=== PATIENT | male | born 1945 | race Caucasian/White ===

== ENCOUNTER 2019-02-05 11:49 | Emergency (ER) | payer OTHER ==
[2019-02-05 13:35] LABS: ADD MAN DIFF? NO
[2019-02-05 13:40] LABS: WHITE BLOOD COUNT 15.8 10^3/ul (4.8-10.8)
[2019-02-05 13:40] LABS: ABNORMAL IP MESSAGE 1; BASOPHIL # 0.1 10^3/ul (0.0-0.1); BASOPHILS % 0.3 % (0.0-2.0); HEMATOCRIT 33.8 % (42.0-52.0); HEMOGLOBIN 10.9 g/dl (14.0-18.0); LYMPHOCYTES # 0.6 10^3/ul (0.8-2.9); LYMPHOCYTES % 3.7 % (15.0-51.0); MEAN CORPUSCULAR HEMOGLOBIN 27.9 pg (29.0-33.0); MEAN CORPUSCULAR HGB CONC 32.2 g/dl (32.0-37.0); MEAN CORPUSCULAR VOLUME 86.7 fl (82.0-101.0); MEAN PLATELET VOLUME 8.4 fl (7.4-10.4); MONOCYTE # 0.7 10^3/ul (0.3-0.9); MONOCYTES % 4.1 % (0.0-11.0); NEUTROPHIL # 14.4 10^3/ul (1.6-7.5); NEUTROPHILS % 91.3 % (39.0-77.0); PLATELET COUNT 309 10^3/UL (140-415); POSITIVE DIFF @See below; RED CELL DISTRIBUTION WIDTH 13.4 % (11.5-14.5)
[2019-02-05 14:06] LABS: INR 1.05; PROTIME 13.8 Sec (11.9-14.9); PT RATIO 1.1
[2019-02-05 14:07] LABS: PARTIAL THROMBOPLASTIN TIME 35.4 Sec (23.0-35.0)
[2019-02-05 14:42] LABS: ALANINE AMINOTRANSFERASE 19 IU/L (13-69); ALBUMIN 3.9 g/dl (3.3-4.9); ALBUMIN/GLOBULIN RATIO 1.08; ALKALINE PHOSPHATASE 96 IU/L (42-121); ANION GAP 10 (5-13); ASPARTATE AMINO TRANSFERASE 21 IU/L (15-46); BILIRUBIN,INDIRECT 0.5 mg/dl (0-1.1); BILIRUBIN,TOTAL 0.5 mg/dl (0.2-1.3); BLOOD UREA NITROGEN 16 mg/dl (7-20); CALCIUM 9.3 mg/dl (8.4-10.2); CARBON DIOXIDE 29 mmol/L (21-31); CHLORIDE 100 mmol/L (97-110); CREATININE 0.59 mg/dl (0.61-1.24); ETHANOL < 10.0 mg/dl (0-0); GLUCOSE 145 mg/dl (70-220); LIPASE 48 U/L (23-300); POTASSIUM 3.9 mmol/L (3.5-5.1); SODIUM 139 mmol/L (135-144); TOTAL PROTEIN 7.5 g/dl (6.1-8.1)
[2019-02-05 14:53] LABS: TROPONIN-I 0.014 ng/ml (0.000-0.120)
[2019-02-05 14:58] LABS: FREE T3 3.83 pg/ml (2.77-5.27)
[2019-02-05 14:59] LABS: FREE T4 (FREE THYROXINE) 1.68 ng/dl (0.78-2.44)
[2019-02-05] MEDS: SOD CHLORIDE 0.9% 1,000 ML IV (15:02)
[2019-02-05] MEDS: LACTATED RINGER'S 1,000 ML IV (15:03)
[2019-02-05 15:12] LABS: THYROID STIMULATING HORMONE 0.454 MIU/L (0.465-4.680)
[2019-02-05] MEDS: KETOROLAC 15 MG INJ IV (15:19)
[2019-02-05] MEDS: IOHEXOL 300MG/ML 150 ML BTL (16:52)
[2019-02-05] MEDS: SOD CHLORIDE 0.9% 100 ML (16:52)
[2019-02-05] MEDS ORDERED: IOHEXOL 100 ML (18:30)
[2019-02-05] MEDS ORDERED: SOD CHLORIDE 0.9% 100 ML (18:30)
[2019-02-05] MEDS: ENALAPRILAT 1.25 MG INJ IV (18:48)
[2019-02-05] MEDS: LABETALOL HCL 20MG INJ IV (23:02)
[2019-02-05] MEDS: hydrALAzine 20 MG INJ IV (23:38)
[2019-02-06] MEDS: ESMOLOL 250 ML IV (00:11)
== END 2019-02-06 01:22 | disposition short-term general hospital (02) ==
LOC: E/R 02-06 01:22
DX: I72.0 Aneurysm of carotid artery (principal); J98.8 Other specified respiratory disorders; E86.0 Dehydration; K02.9 Dental caries, unspecified; I10 Essential (primary) hypertension; R10.9 Unspecified abdominal pain
CPT/HCPCS: 70450; 70491; 71045; 71275; 80053; 80307; 82533; 83690; 84439; 84443; 84481; 84484; 85025; 85610; 85730; 86850; 86900; 86901; 93005; 96374; 96375; 99285-25

== ENCOUNTER 2019-03-13 09:26 | Emergency (ER) | payer OTHER ==
[2019-03-13 11:03] LABS: ADD UMIC YES; UR ASCORBIC ACID NEGATIVE (NEGATIVE); UR BACTERIA FEW /HPF (NONE SEEN); UR BILIRUBIN (Dip) NEGATIVE (NEGATIVE); UR BLOOD (Dip) 3+ mg/dL (NEGATIVE); UR CLARITY TURBID (CLEAR); UR COLOR YELLOW (YELLOW); UR GLUCOSE (Dip) NEGATIVE (NEGATIVE); UR KETONES (Dip) NEGATIVE (NEGATIVE); UR LEUKOCYTE ESTERASE (Dip) 2+ Leu/ul (NEGATIVE); UR NITRITE (Dip) NEGATIVE (NEGATIVE); UR RBC > 182 /HPF (0-5); UR SPECIFIC GRAVITY (Dip) 1.013 (1.003-1.030); UR TOTAL PROTEIN (Dip) 2+ mg/dl (NEGATIVE); UR UROBILINOGEN (Dip) NEGATIVE (NEGATIVE); UR WBC > 182 /HPF (0-5)
== END 2019-03-13 13:20 | disposition home or self-care (01) ==
LOC: E/R 09:26
DX: N30.01 Acute cystitis with hematuria (principal); R40.2252 Coma scale, best verbal response, oriented, at arrival to emergency department; I10 Essential (primary) hypertension; Z86.73 Personal history of transient ischemic attack (TIA), and cerebral infarction without residual deficits; Z95.1 Presence of aortocoronary bypass graft
CPT/HCPCS: 51702; 81001; 87086; 99283-25

== ENCOUNTER 2019-03-19 13:53 | Inpatient (IN) | payer OTHER ==
[2019-03-19] MEDS ORDERED: ONDANSETRON 4 MG INJ IV ×2 (14:30→18:00)
[2019-03-19] MEDS ORDERED: ACETAMINOPHEN 325 MG TAB PO ×2 (14:30→18:00)
[2019-03-19 15:07] LABS: ADD MAN DIFF? NO
[2019-03-19 15:13] LABS: WHITE BLOOD COUNT 15.5 10^3/ul (4.8-10.8)
[2019-03-19 15:13] LABS: ABNORMAL IP MESSAGE 1; BASOPHILS % 0.3 % (0.0-2.0); HEMATOCRIT 30.8 % (42.0-52.0); HEMOGLOBIN 10.2 g/dl (14.0-18.0); LYMPHOCYTES # 0.5 10^3/ul (0.8-2.9); LYMPHOCYTES % 3.3 % (15.0-51.0); MEAN CORPUSCULAR HEMOGLOBIN 29.4 pg (29.0-33.0); MEAN CORPUSCULAR HGB CONC 33.1 g/dl (32.0-37.0); MEAN CORPUSCULAR VOLUME 88.8 fl (82.0-101.0); MEAN PLATELET VOLUME 8.9 fl (7.4-10.4); MONOCYTE # 0.9 10^3/ul (0.3-0.9); MONOCYTES % 5.5 % (0.0-11.0); NEUTROPHILS % 90.3 % (39.0-77.0); PLATELET COUNT 293 10^3/UL (140-415); POSITIVE DIFF @See below; RED BLOOD COUNT 3.47 10^6/ul (4.70-6.10); RED CELL DISTRIBUTION WIDTH 15.2 % (11.5-14.5)
[2019-03-19] MEDS: SODIUM CHLORIDE 0.9% 1L BAG IV* (15:20)
[2019-03-19] MEDS: CEFTRIAXONE 1 GM/50 ML (PMX) 50 ML IVPB (15:21)
[2019-03-19 15:31] LABS: INR 0.92; PROTIME 12.5 Sec (11.9-14.9)
[2019-03-19 15:32] LABS: ALANINE AMINOTRANSFERASE 20 IU/L (13-69); ALBUMIN/GLOBULIN RATIO 1.37; ALKALINE PHOSPHATASE 126 IU/L (42-121); ANION GAP 8 (5-13); ASPARTATE AMINO TRANSFERASE 20 IU/L (15-46); BILIRUBIN,INDIRECT 0.4 mg/dl (0-1.1); BILIRUBIN,TOTAL 0.4 mg/dl (0.2-1.3); BLOOD UREA NITROGEN 15 mg/dl (7-20); CALCIUM 9.2 mg/dl (8.4-10.2); CARBON DIOXIDE 27 mmol/L (21-31); CHLORIDE 97 mmol/L (97-110); GLUCOSE 239 mg/dl (70-220); PARTIAL THROMBOPLASTIN TIME 32.7 Sec (23.0-35.0); POTASSIUM 4.6 mmol/L (3.5-5.1); SODIUM 132 mmol/L (135-144); TOTAL PROTEIN 6.9 g/dl (6.1-8.1)
[2019-03-19 15:43] LABS: TROPONIN-I < 0.012 ng/ml (0.000-0.120)
[2019-03-19] MEDS ORDERED: BISACODYL (EC) 5 MG TAB PO (18:00)
[2019-03-19 19:37] LABS: LACTIC ACID 1.1 mmol/L (0.5-2.0)
[2019-03-19 19:50] LABS: ADD UMIC YES; UR ASCORBIC ACID NEGATIVE (NEGATIVE); UR BILIRUBIN (Dip) NEGATIVE (NEGATIVE); UR BLOOD (Dip) 3+ mg/dL (NEGATIVE); UR CLARITY CLEAR (CLEAR); UR COLOR RED (YELLOW); UR GLUCOSE (Dip) NEGATIVE (NEGATIVE); UR KETONES (Dip) NEGATIVE (NEGATIVE); UR LEUKOCYTE ESTERASE (Dip) NEGATIVE Leu/ul (NEGATIVE); UR NITRITE (Dip) NEGATIVE (NEGATIVE); UR RBC > 182 /HPF (0-5); UR SPECIFIC GRAVITY (Dip) 1.005 (1.003-1.030); UR TOTAL PROTEIN (Dip) NEGATIVE (NEGATIVE); UR UROBILINOGEN (Dip) NEGATIVE (NEGATIVE); UR WBC 1 /HPF (0-5)
[2019-03-19] MEDS: MELATONIN 5 MG TABLET PO (20:47)
[2019-03-19] MEDS: AMIODARONE 200 MG TAB PO (20:47)
[2019-03-19] MEDS ORDERED: GLUCOSE GEL 15 GRAM TUBE PO ×2 (23:00)
[2019-03-19] MEDS ORDERED: GLUCAGON 1 MG INJ IM (23:00)
[2019-03-19] MEDS ORDERED: DEXTROSE 50% 50 ML SYRINGE IV ×2 (23:00)
[2019-03-19] MEDS ORDERED: GLUCOSE GEL 15 GRAM TUBE BUCCAL (23:00)
[2019-03-20] MEDS: ACCU-CHEK XX (02:00)
[2019-03-20 05:09] LABS: ADD MAN DIFF? NO
[2019-03-20 05:12] LABS: BASOPHILS % 0.5 % (0.0-2.0); EOSINOPHILS # 0.1 10^3/ul (0.0-0.5); EOSINOPHILS % 0.6 % (0.0-7.0); HEMATOCRIT 28.1 % (42.0-52.0); HEMOGLOBIN 9.4 g/dl (14.0-18.0); LYMPHOCYTES # 0.7 10^3/ul (0.8-2.9); LYMPHOCYTES % 8.6 % (15.0-51.0); MEAN CORPUSCULAR HEMOGLOBIN 29.8 pg (29.0-33.0); MEAN CORPUSCULAR HGB CONC 33.5 g/dl (32.0-37.0); MEAN CORPUSCULAR VOLUME 89.2 fl (82.0-101.0); MEAN PLATELET VOLUME 8.8 fl (7.4-10.4); MONOCYTE # 0.6 10^3/ul (0.3-0.9); MONOCYTES % 7.2 % (0.0-11.0); NEUTROPHIL # 6.6 10^3/ul (1.6-7.5); NEUTROPHILS % 82.5 % (39.0-77.0); PLATELET COUNT 253 10^3/UL (140-415); RED BLOOD COUNT 3.15 10^6/ul (4.70-6.10)
[2019-03-20 05:58] LABS: ANION GAP 6 (5-13); BLOOD UREA NITROGEN 7 mg/dl (7-20); CALCIUM 8.9 mg/dl (8.4-10.2); CARBON DIOXIDE 27 mmol/L (21-31); CHLORIDE 101 mmol/L (97-110); CREATININE 0.54 mg/dl (0.61-1.24); GLUCOSE 109 mg/dl (70-220); POTASSIUM 3.9 mmol/L (3.5-5.1); SODIUM 134 mmol/L (135-144)
[2019-03-20] MEDS: PANTOPRAZOLE (EC) 40 MG TAB PO (06:14)
[2019-03-20] MEDS: INSULIN ASPART [NOVOLOG] 3 ML PEN SC ×4 (07:50→21:00)
[2019-03-20] MEDS: TAMSULOSIN (SR) 0.4 MG CAP PO (08:38)
[2019-03-20] MEDS: AMLODIPINE 10 MG TAB PO (08:38)
[2019-03-20] MEDS: LISINOPRIL 20 MG TAB PO (08:39)
[2019-03-20] MEDS: AMIODARONE 200 MG TAB PO ×2 (08:39→21:16)
[2019-03-20] MEDS: CEFTRIAXONE 1 GM/50 ML (PMX) 50 ML IVPB (16:20)
[2019-03-20] MEDS: MELATONIN 5 MG TABLET PO (21:16)
[2019-03-21] MEDS: ACCU-CHEK XX (02:00)
[2019-03-21 04:58] LABS: ADD MAN DIFF? NO
[2019-03-21 05:03] LABS: WHITE BLOOD COUNT 6.6 10^3/ul (4.8-10.8)
[2019-03-21 05:03] LABS: BASOPHILS % 0.6 % (0.0-2.0); EOSINOPHILS # 0.1 10^3/ul (0.0-0.5); EOSINOPHILS % 0.8 % (0.0-7.0); HEMATOCRIT 26.7 % (42.0-52.0); LYMPHOCYTES % 14.4 % (15.0-51.0); MEAN CORPUSCULAR HEMOGLOBIN 30.1 pg (29.0-33.0); MEAN CORPUSCULAR HGB CONC 33.7 g/dl (32.0-37.0); MEAN CORPUSCULAR VOLUME 89.3 fl (82.0-101.0); MEAN PLATELET VOLUME 8.4 fl (7.4-10.4); MONOCYTE # 0.5 10^3/ul (0.3-0.9); MONOCYTES % 7.6 % (0.0-11.0); NEUTROPHILS % 76.3 % (39.0-77.0); PLATELET COUNT 243 10^3/UL (140-415); RED BLOOD COUNT 2.99 10^6/ul (4.70-6.10); RED CELL DISTRIBUTION WIDTH 14.9 % (11.5-14.5)
[2019-03-21 05:26] LABS: ANION GAP 6 (5-13); BLOOD UREA NITROGEN 13 mg/dl (7-20); CALCIUM 8.7 mg/dl (8.4-10.2); CARBON DIOXIDE 27 mmol/L (21-31); CHLORIDE 100 mmol/L (97-110); CREATININE 0.77 mg/dl (0.61-1.24); GLUCOSE 99 mg/dl (70-220); POTASSIUM 4.2 mmol/L (3.5-5.1); SODIUM 133 mmol/L (135-144)
[2019-03-21] MEDS: PANTOPRAZOLE (EC) 40 MG TAB PO (06:20)
[2019-03-21] MEDS: INSULIN ASPART [NOVOLOG] 3 ML PEN SC ×4 (07:50→20:59)
[2019-03-21] MEDS: TAMSULOSIN (SR) 0.4 MG CAP PO (08:15)
[2019-03-21] MEDS: AMLODIPINE 10 MG TAB PO (08:15)
[2019-03-21] MEDS: AMIODARONE 200 MG TAB PO ×2 (08:17→20:53)
[2019-03-21] MEDS: LISINOPRIL 20 MG TAB PO (08:18)
[2019-03-21] MEDS: CEFTRIAXONE 1 GM/50 ML (PMX) 50 ML IVPB (15:02)
[2019-03-21] MEDS: MELATONIN 5 MG TABLET PO (20:50)
[2019-03-22] MEDS: ACCU-CHEK XX (02:00)
[2019-03-22] MEDS: PANTOPRAZOLE (EC) 40 MG TAB PO (06:58)
[2019-03-22] MEDS: INSULIN ASPART [NOVOLOG] 3 ML PEN SC ×4 (07:50→21:00)
[2019-03-22] MEDS: AMLODIPINE 10 MG TAB PO (10:44)
[2019-03-22] MEDS: LISINOPRIL 20 MG TAB PO (10:45)
[2019-03-22] MEDS: TAMSULOSIN (SR) 0.4 MG CAP PO (10:45)
[2019-03-22] MEDS: AMIODARONE 200 MG TAB PO ×2 (10:46→21:07)
[2019-03-22] MEDS: CEFTRIAXONE 1 GM/50 ML (PMX) 50 ML IVPB (15:40)
[2019-03-22] MEDS: SOD CHLORIDE 0.45% 1,000 ML IV (15:40)
[2019-03-22] MEDS: MELATONIN 5 MG TABLET PO (21:07)
[2019-03-23] MEDS: ACCU-CHEK XX (02:00)
[2019-03-23] MEDS: PANTOPRAZOLE (EC) 40 MG TAB PO (05:16)
[2019-03-23] MEDS: INSULIN ASPART [NOVOLOG] 3 ML PEN SC ×4 (09:20→21:00)
[2019-03-23] MEDS: LISINOPRIL 20 MG TAB PO (09:21)
[2019-03-23] MEDS: TAMSULOSIN (SR) 0.4 MG CAP PO (09:21)
[2019-03-23] MEDS: AMIODARONE 200 MG TAB PO ×2 (09:21→21:23)
[2019-03-23] MEDS: AMLODIPINE 10 MG TAB PO (09:21)
[2019-03-23] MEDS: SOD CHLORIDE 0.45% 1,000 ML IV (12:41)
[2019-03-23] MEDS: CEFTRIAXONE 1 GM/50 ML (PMX) 50 ML IVPB (14:35)
[2019-03-23] MEDS: MELATONIN 5 MG TABLET PO (21:21)
[2019-03-24] MEDS: ACCU-CHEK XX (02:00)
[2019-03-24] MEDS: PANTOPRAZOLE (EC) 40 MG TAB PO (05:15)
[2019-03-24 06:01] LABS: ADD MAN DIFF? NO
[2019-03-24 06:09] LABS: WHITE BLOOD COUNT 7.7 10^3/ul (4.8-10.8)
[2019-03-24 06:09] LABS: BASOPHILS % 0.5 % (0.0-2.0); EOSINOPHILS # 0.1 10^3/ul (0.0-0.5); EOSINOPHILS % 1.7 % (0.0-7.0); HEMATOCRIT 28.4 % (42.0-52.0); HEMOGLOBIN 9.4 g/dl (14.0-18.0); LYMPHOCYTES # 0.9 10^3/ul (0.8-2.9); LYMPHOCYTES % 11.7 % (15.0-51.0); MEAN CORPUSCULAR HEMOGLOBIN 29.3 pg (29.0-33.0); MEAN CORPUSCULAR HGB CONC 33.1 g/dl (32.0-37.0); MEAN CORPUSCULAR VOLUME 88.5 fl (82.0-101.0); MEAN PLATELET VOLUME 8.8 fl (7.4-10.4); MONOCYTE # 0.5 10^3/ul (0.3-0.9); MONOCYTES % 6.1 % (0.0-11.0); NEUTROPHIL # 6.1 10^3/ul (1.6-7.5); NEUTROPHILS % 79.6 % (39.0-77.0); PLATELET COUNT 276 10^3/UL (140-415); RED BLOOD COUNT 3.21 10^6/ul (4.70-6.10); RED CELL DISTRIBUTION WIDTH 14.6 % (11.5-14.5)
[2019-03-24 06:44] LABS: ANION GAP 6 (5-13); BLOOD UREA NITROGEN 14 mg/dl (7-20); CALCIUM 8.5 mg/dl (8.4-10.2); CARBON DIOXIDE 27 mmol/L (21-31); CHLORIDE 100 mmol/L (97-110); CREATININE 0.62 mg/dl (0.61-1.24); GLUCOSE 79 mg/dl (70-220); POTASSIUM 4.1 mmol/L (3.5-5.1); SODIUM 133 mmol/L (135-144)
[2019-03-24] MEDS: INSULIN ASPART [NOVOLOG] 3 ML PEN SC ×4 (09:00→21:13)
[2019-03-24] MEDS: TAMSULOSIN (SR) 0.4 MG CAP PO (09:37)
[2019-03-24] MEDS: LISINOPRIL 20 MG TAB PO (09:38)
[2019-03-24] MEDS: AMIODARONE 200 MG TAB PO ×2 (09:38→21:23)
[2019-03-24] MEDS: AMLODIPINE 10 MG TAB PO (09:38)
[2019-03-24] MEDS: SOD CHLORIDE 0.45% 1,000 ML IV (09:56)
[2019-03-24] MEDS: CEFTRIAXONE 1 GM/50 ML (PMX) 50 ML IVPB (15:43)
[2019-03-24] MEDS: DOCUSATE SODIUM 100 MG CAP PO (17:49)
[2019-03-24] MEDS: MELATONIN 5 MG TABLET PO (21:14)
[2019-03-25] MEDS: ACCU-CHEK XX (02:00)
[2019-03-25] MEDS: SOD CHLORIDE 0.45% 1,000 ML IV (05:49)
[2019-03-25] MEDS: PANTOPRAZOLE (EC) 40 MG TAB PO (05:49)
[2019-03-25 05:54] LABS: ANION GAP 4 (5-13); BLOOD UREA NITROGEN 13 mg/dl (7-20); CALCIUM 8.5 mg/dl (8.4-10.2); CARBON DIOXIDE 27 mmol/L (21-31); CHLORIDE 100 mmol/L (97-110); CREATININE 0.66 mg/dl (0.61-1.24); GLUCOSE 90 mg/dl (70-220); SODIUM 131 mmol/L (135-144)
[2019-03-25] MEDS: INSULIN ASPART [NOVOLOG] 3 ML PEN SC ×4 (08:45→21:00)
[2019-03-25] MEDS: AMLODIPINE 10 MG TAB PO (08:57)
[2019-03-25] MEDS: TAMSULOSIN (SR) 0.4 MG CAP PO (08:57)
[2019-03-25] MEDS: LISINOPRIL 20 MG TAB PO (08:58)
[2019-03-25] MEDS: AMIODARONE 200 MG TAB PO ×2 (08:58→21:55)
[2019-03-25] MEDS: CEFTRIAXONE 1 GM/50 ML (PMX) 50 ML IVPB (15:27)
[2019-03-25] MEDS: POLYETHYLENE GLYCOL 17 GM PACKET PO (15:30)
[2019-03-25] MEDS: DOCUSATE SODIUM 100 MG CAP PO (17:49)
[2019-03-25] MEDS: MELATONIN 5 MG TABLET PO (21:53)
[2019-03-26] MEDS: ACCU-CHEK XX (02:00)
[2019-03-26] MEDS: DOCUSATE SODIUM 100 MG CAP PO (05:25)
[2019-03-26] MEDS: PANTOPRAZOLE (EC) 40 MG TAB PO (05:51)
[2019-03-26 06:12] LABS: ADD MAN DIFF? NO
[2019-03-26 06:25] LABS: WHITE BLOOD COUNT 9.1 10^3/ul (4.8-10.8)
[2019-03-26 06:25] LABS: ABNORMAL IP MESSAGE 1; BASOPHIL # 0.1 10^3/ul (0.0-0.1); BASOPHILS % 0.5 % (0.0-2.0); EOSINOPHILS % 0.3 % (0.0-7.0); HEMATOCRIT 26.3 % (42.0-52.0); HEMOGLOBIN 8.8 g/dl (14.0-18.0); LYMPHOCYTES # 0.5 10^3/ul (0.8-2.9); LYMPHOCYTES % 5.9 % (15.0-51.0); MEAN CORPUSCULAR HEMOGLOBIN 29.4 pg (29.0-33.0); MEAN CORPUSCULAR HGB CONC 33.5 g/dl (32.0-37.0); MEAN PLATELET VOLUME 8.7 fl (7.4-10.4); MONOCYTE # 0.4 10^3/ul (0.3-0.9); MONOCYTES % 4.8 % (0.0-11.0); NEUTROPHILS % 88.1 % (39.0-77.0); PLATELET COUNT 253 10^3/UL (140-415); POSITIVE DIFF @See below; RED BLOOD COUNT 2.99 10^6/ul (4.70-6.10); RED CELL DISTRIBUTION WIDTH 14.6 % (11.5-14.5)
[2019-03-26 06:46] LABS: ANION GAP 5 (5-13); BLOOD UREA NITROGEN 12 mg/dl (7-20); CALCIUM 8.3 mg/dl (8.4-10.2); CARBON DIOXIDE 27 mmol/L (21-31); CHLORIDE 98 mmol/L (97-110); CREATININE 0.68 mg/dl (0.61-1.24); GLUCOSE 152 mg/dl (70-220); POTASSIUM 3.8 mmol/L (3.5-5.1); SODIUM 130 mmol/L (135-144)
[2019-03-26] MEDS: INSULIN ASPART [NOVOLOG] 3 ML PEN SC ×2 (07:50→12:29)
[2019-03-26] MEDS: QUETIAPINE 25 MG TAB PO (08:30)
[2019-03-26] MEDS: AMLODIPINE 10 MG TAB PO (08:31)
[2019-03-26] MEDS: AMIODARONE 200 MG TAB PO (08:31)
[2019-03-26] MEDS: TAMSULOSIN (SR) 0.4 MG CAP PO (08:32)
[2019-03-26] MEDS: POLYETHYLENE GLYCOL 17 GM PACKET PO (08:32)
[2019-03-26] MEDS: LISINOPRIL 20 MG TAB PO (08:32)
[2019-03-26] MEDS: CEFTRIAXONE 1 GM/50 ML (PMX) 50 ML IVPB (12:26)
== END 2019-03-26 14:36 | DRG 872 ==
LOC: MS1 03-24 09:01 → E/R 13:53 → MS1 14:17
DX: A41.9 Sepsis, unspecified organism (principal); R64 Cachexia; N39.0 Urinary tract infection, site not specified; E11.8 Type 2 diabetes mellitus with unspecified complications; I48.91 Unspecified atrial fibrillation; D64.9 Anemia, unspecified; I10 Essential (primary) hypertension; I67.9 Cerebrovascular disease, unspecified; Z68.23 Body mass index [BMI] 23.0-23.9, adult; K59.00 Constipation, unspecified; N40.1 Benign prostatic hyperplasia with lower urinary tract symptoms; R33.8 Other retention of urine; A53.0 Latent syphilis, unspecified as early or late; R31.0 Gross hematuria; G93.89 Other specified disorders of brain
CPT/HCPCS: 36415; 80048; 80053; 81001; 82962; 83605; 84484; 85025; 85610; 85730; 87040-91; 87086; 93005; 99285-25

== ENCOUNTER 2019-03-27 17:17 | Inpatient (IN) | payer OTHER ==
[2019-03-27] MEDS: INSULIN ASPART [NOVOLOG] 3 ML PEN SC
[2019-03-27] MEDS: TAMSULOSIN (SR) 0.4 MG CAP PO
[2019-03-27] MEDS: D5W-0.45 NACL + KCL 20 MEQ 1,000 ML IV
[~2019-03-27 17:17] MED LIST: ETOMIDATE 20 MG INJ; SUCCINYLCHOLINE CHLORIDE 100 MG/5 ML SYG IV
[2019-03-27] MEDS: ETOMIDATE 20 MG INJ IV (17:45)
[2019-03-27] MEDS: SUCCINYLCHOLINE CHLORIDE 100 MG/5 ML SYG IV (17:45)
[2019-03-27] MEDS: ACETAMINOPHEN 650 MG SUPP PR (17:52)
[2019-03-27] MEDS: CEFEPIME 2GM/50 ML (PMX) 50 ML IVPB (17:53)
[2019-03-27] MEDS: PROPOFOL 100 ML IV (17:53)
[2019-03-27 17:56] LABS: ADD UMIC YES; UR ASCORBIC ACID NEGATIVE (NEGATIVE); UR BILIRUBIN (Dip) NEGATIVE (NEGATIVE); UR BLOOD (Dip) 1+ mg/dL (NEGATIVE); UR CLARITY CLEAR (CLEAR); UR COLOR YELLOW (YELLOW); UR GLUCOSE (Dip) NEGATIVE (NEGATIVE); UR KETONES (Dip) NEGATIVE (NEGATIVE); UR LEUKOCYTE ESTERASE (Dip) NEGATIVE Leu/ul (NEGATIVE); UR NITRITE (Dip) NEGATIVE (NEGATIVE); UR RBC 1 /HPF (0-5); UR SPECIFIC GRAVITY (Dip) 1.006 (1.003-1.030); UR TOTAL PROTEIN (Dip) NEGATIVE (NEGATIVE); UR UROBILINOGEN (Dip) NEGATIVE (NEGATIVE); UR WBC 2 /HPF (0-5)
[2019-03-27 18:11] LABS: INR 1.01; PROTIME 13.4 Sec (11.9-14.9)
[2019-03-27 18:12] LABS: PARTIAL THROMBOPLASTIN TIME 28.1 Sec (23.0-35.0)
[2019-03-27 18:13] LABS: AADO2 Arterial 443.1 mmHg (7.0-24.0); Allen Test ACCEPTAB; Arterial Base Excess -3.1 mmol/L (-3.0-3); Arterial Blood Gas Oxygen Sat 98.9 mmHG (95.0-100.0); Arterial COHb 0.3 % (0.0-3.0); Arterial Fraction of Oxyhgb 98.2 % (93.0-99.0); Arterial HCO3 22.4 mmol/L (22.0-26.0); Arterial MetHb 0.4 % (0.0-1.5); Arterial pCO2 41.7 mmhg (35-45); MODE VENT - AC; Site Left Radial
[2019-03-27 18:14] LABS: ALANINE AMINOTRANSFERASE 25 IU/L (13-69); ALBUMIN 3.7 g/dl (3.3-4.9); ALBUMIN/GLOBULIN RATIO 1.12; ALKALINE PHOSPHATASE 123 IU/L (42-121); ANION GAP 9 (5-13); ASPARTATE AMINO TRANSFERASE 25 IU/L (15-46); BILIRUBIN,INDIRECT 0.4 mg/dl (0-1.1); BILIRUBIN,TOTAL 0.4 mg/dl (0.2-1.3); BLOOD UREA NITROGEN 17 mg/dl (7-20); CALCIUM 9.2 mg/dl (8.4-10.2); CARBON DIOXIDE 24 mmol/L (21-31); CHLORIDE 101 mmol/L (97-110); CREATININE 0.62 mg/dl (0.61-1.24); GLUCOSE 209 mg/dl (70-220); POTASSIUM 5.1 mmol/L (3.5-5.1); SODIUM 134 mmol/L (135-144)
[2019-03-27 18:25] LABS: TROPONIN-I < 0.012 ng/ml (0.000-0.120)
[2019-03-27 18:26] LABS: ABNORMAL IP MESSAGE 1; HEMATOCRIT 29.6 % (42.0-52.0); HEMOGLOBIN 9.7 g/dl (14.0-18.0); MEAN CORPUSCULAR HEMOGLOBIN 29.8 pg (29.0-33.0); MEAN CORPUSCULAR HGB CONC 32.8 g/dl (32.0-37.0); MEAN CORPUSCULAR VOLUME 90.8 fl (82.0-101.0); MEAN PLATELET VOLUME 8.6 fl (7.4-10.4); PLATELET COUNT 239 10^3/UL (140-415); POSITIVE DIFF @See below; RED BLOOD COUNT 3.26 10^6/ul (4.70-6.10); RED CELL DISTRIBUTION WIDTH 15.1 % (11.5-14.5)
[2019-03-27 18:26] LABS: WHITE BLOOD COUNT 32.1 10^3/ul (4.8-10.8)
[2019-03-27] MEDS: VANCOMYCIN 1 GM (PMX) 250 ML IVPB (18:29)
[2019-03-27 18:30] LABS: ADD MAN DIFF? YES
[2019-03-27] MEDS: SODIUM CHLORIDE 0.9% 1L BAG IV* ×2 (18:35→18:36)
[2019-03-27 18:57] LABS: ANISOCYTOSIS 2+ (0-0); BAND NEUTROPHILS #M 2.2 10^3/ul (0.0-0.6); BAND NEUTROPHILS % (M) 7 % (0-4); BURR CELLS 3+ (0-0); MICROCYTOSIS 1+ (0-0); MONOCYTE #M 0.9 10^3/ul (0.3-0.9); MONOCYTES % (M) 3 % (0-11); PLATELET ESTIMATE NORMAL; POIKILOCYTOSIS 3+ (0-0); POLYCHROMASIA 1+ (0-0); SEG NEUT #M 29.6 10^3/ul (1.6-7.5); SEGMENTED NEUTROPHILS (M) % 90 % (39-77)
[2019-03-27] MEDS: FENTAnyl (DRIP) 1000 mcg/100mL 100 ML IV (19:14)
[2019-03-27 20:07] LABS: LACTIC ACID 1.6 mmol/L (0.5-2.0)
[2019-03-27] MEDS ORDERED: ONDANSETRON 4 MG INJ IV (20:30)
[2019-03-27] MEDS: ALBUTEROL/IPRATROPIUM (NEB) 3 ML AMP NEB (21:00)
[2019-03-27] MEDS: MIDAZOLAM (DRIP) 50 mg/50 mL 50 ML IV (21:05)
[2019-03-27 22:02] LABS: ABNORMAL IP MESSAGE 1; HEMATOCRIT 26.4 % (42.0-52.0); HEMOGLOBIN 8.7 g/dl (14.0-18.0); MEAN CORPUSCULAR HEMOGLOBIN 29.9 pg (29.0-33.0); MEAN CORPUSCULAR VOLUME 90.7 fl (82.0-101.0); MEAN PLATELET VOLUME 8.8 fl (7.4-10.4); PLATELET COUNT 228 10^3/UL (140-415); POSITIVE DIFF @See below; RED BLOOD COUNT 2.91 10^6/ul (4.70-6.10)
[2019-03-27 22:02] LABS: WHITE BLOOD COUNT 33.3 10^3/ul (4.8-10.8)
[2019-03-27 22:03] LABS: ADD MAN DIFF? YES
[2019-03-27 22:19] LABS: LACTIC ACID 1.6 mmol/L (0.5-2.0)
[2019-03-27 22:22] LABS: ANION GAP 8 (5-13); BLOOD UREA NITROGEN 16 mg/dl (7-20); CALCIUM 8.2 mg/dl (8.4-10.2); CARBON DIOXIDE 23 mmol/L (21-31); CHLORIDE 106 mmol/L (97-110); CREATININE 0.59 mg/dl (0.61-1.24); GLUCOSE 125 mg/dl (70-220); MAGNESIUM 1.6 mg/dl (1.7-2.5); PHOSPHORUS 3.1 mg/dl (2.5-4.9); SODIUM 137 mmol/L (135-144)
[2019-03-27 22:35] LABS: ANISOCYTOSIS 2+ (0-0); BAND NEUTROPHILS #M 5.6 10^3/ul (0.0-0.6); BAND NEUTROPHILS % (M) 17 % (0-4); BURR CELLS 3+ (0-0); LYMPHOCYTES #M 0.6 10^3/ul (0.8-2.9); LYMPHOCYTES % (M) 2 % (15-51); MICROCYTOSIS 1+ (0-0); MONOCYTE #M 0.3 10^3/ul (0.3-0.9); MONOCYTES % (M) 1 % (0-11); PLATELET ESTIMATE NORMAL; POIKILOCYTOSIS 2+ (0-0); POLYCHROMASIA 1+ (0-0); SEG NEUT #M 28.5 10^3/ul (1.6-7.5); SEGMENTED NEUTROPHILS (M) % 80 % (39-77)
[2019-03-27] MEDS: NORepinephrine 8MG/250 ML (PMX 250 ML IV (22:55)
[2019-03-28] MEDS: FAMOTIDINE 20 MG INJ IV ×3 (00:14→21:06)
[2019-03-28] MEDS: AMIODARONE 200 MG TAB PO (00:14)
[2019-03-28] MEDS: INSULIN ASPART [NOVOLOG] 3 ML PEN SC ×6 (00:28→21:05)
[2019-03-28] MEDS: ALBUTEROL/IPRATROPIUM (NEB) 3 ML AMP NEB (01:00)
[2019-03-28 01:57] LABS: AADO2 Arterial 249.8 mmHg (7.0-24.0); Allen Test ACCEPTAB; Arterial Base Excess -3.6 mmol/L (-3.0-3); Arterial Blood Gas Oxygen Sat 90.7 mmHG (95.0-100.0); Arterial COHb 0.2 % (0.0-3.0); Arterial Fraction of Oxyhgb 90.1 % (93.0-99.0); Arterial HCO3 21.6 mmol/L (22.0-26.0); Arterial MetHb 0.5 % (0.0-1.5); Arterial pCO2 39.4 mmhg (35-45); MODE VENT - AC; Site Right Radial
[2019-03-28] MEDS ORDERED: FENTAnyl (DRIP) 1000 mcg/100mL 100 ML IV (02:30)
[2019-03-28] MEDS ORDERED: NORepinephrine 8MG/250 ML (PMX 250 ML IV (02:30)
[2019-03-28] MEDS ORDERED: MIDAZOLAM (DRIP) 50 mg/50 mL 50 ML IV (02:30)
[2019-03-28 04:59] LABS: ADD MAN DIFF? NO
[2019-03-28 05:04] LABS: WHITE BLOOD COUNT 38.7 10^3/ul (4.8-10.8)
[2019-03-28 05:04] LABS: ABNORMAL IP MESSAGE 1; BASOPHIL # 0.1 10^3/ul (0.0-0.1); BASOPHILS % 0.3 % (0.0-2.0); EOSINOPHILS # 0.1 10^3/ul (0.0-0.5); EOSINOPHILS % 0.2 % (0.0-7.0); HEMOGLOBIN 9.3 g/dl (14.0-18.0); LYMPHOCYTES # 0.4 10^3/ul (0.8-2.9); LYMPHOCYTES % 1.1 % (15.0-51.0); MEAN CORPUSCULAR HEMOGLOBIN 30.3 pg (29.0-33.0); MEAN CORPUSCULAR HGB CONC 33.2 g/dl (32.0-37.0); MEAN CORPUSCULAR VOLUME 91.2 fl (82.0-101.0); MONOCYTE # 0.7 10^3/ul (0.3-0.9); MONOCYTES % 1.8 % (0.0-11.0); NEUTROPHIL # 36.8 10^3/ul (1.6-7.5); NEUTROPHILS % 94.9 % (39.0-77.0); PLATELET COUNT 270 10^3/UL (140-415); POSITIVE DIFF @See below; RED BLOOD COUNT 3.07 10^6/ul (4.70-6.10); RED CELL DISTRIBUTION WIDTH 15.3 % (11.5-14.5)
[2019-03-28 05:18] LABS: ANION GAP 7 (5-13); BLOOD UREA NITROGEN 18 mg/dl (7-20); CALCIUM 8.5 mg/dl (8.4-10.2); CARBON DIOXIDE 24 mmol/L (21-31); CHLORIDE 109 mmol/L (97-110); CREATININE 0.66 mg/dl (0.61-1.24); GLUCOSE 115 mg/dl (70-220); PHOSPHORUS 3.3 mg/dl (2.5-4.9); POTASSIUM 3.9 mmol/L (3.5-5.1); SODIUM 140 mmol/L (135-144)
[2019-03-28 05:32] LABS: MAGNESIUM 1.7 mg/dl (1.7-2.5)
[2019-03-28] MEDS: PANTOPRAZOLE (EC) 40 MG TAB PO (06:26)
[2019-03-28] MEDS: D5W-0.45 NACL + KCL 20 MEQ 1,000 ML IV ×2 (06:53→17:22)
[2019-03-28] MEDS: BISACODYL 10 MG SUPP PR (08:48)
[2019-03-28] MEDS: IPRATROPIUM (HFA) 12.9 GM INHALER INH ×4 (08:54→20:04)
[2019-03-28] MEDS: ALBUTEROL HFA 8 GM INHALER INH ×4 (08:54→20:04)
[2019-03-28] MEDS: AMIODARONE 200 MG TAB GTB ×2 (08:57→21:08)
[2019-03-28] MEDS: LISINOPRIL 20 MG TAB GTB (08:58)
[2019-03-28] MEDS: AMLODIPINE 10 MG TAB GTB (08:58)
[2019-03-28] MEDS: ASPIRIN 81 MG TAB GTB (08:58)
[2019-03-28] MEDS: POLYETHYLENE GLYCOL 17 GM PACKET GTB (08:59)
[2019-03-28] MEDS ORDERED: ASPIRIN 81 MG TAB PO (09:00)
[2019-03-28] MEDS ORDERED: LISINOPRIL 20 MG TAB PO (09:00)
[2019-03-28] MEDS ORDERED: AMLODIPINE 10 MG TAB PO (09:00)
[2019-03-28] MEDS ORDERED: POLYETHYLENE GLYCOL 17 GM PACKET PO (09:00)
[2019-03-28] MEDS: ENOXAPARIN 30 MG/0.3 ML SYG SC (09:01)
[2019-03-28] MEDS ORDERED: VANCOMYCIN IV PER PHARMACY XX (11:30)
[2019-03-28] MEDS: CEFEPIME 2GM/50 ML (PMX) 50 ML IVPB (12:32)
[2019-03-28 12:37] LABS: LACTIC ACID 1.2 mmol/L (0.5-2.0)
[2019-03-28] MEDS: VANCOMYCIN 750 MG (PMX) 250 ML IVPB (17:22)
[2019-03-28] MEDS: TAMSULOSIN (SR) 0.4 MG CAP PO (21:00)
[2019-03-29] MEDS: INSULIN ASPART [NOVOLOG] 3 ML PEN SC ×6 (01:00→21:00)
[2019-03-29] MEDS: IPRATROPIUM (HFA) 12.9 GM INHALER INH ×6 (01:30→21:23)
[2019-03-29] MEDS: ALBUTEROL HFA 8 GM INHALER INH ×6 (01:31→21:23)
[2019-03-29] MEDS: D5W-0.45 NACL + KCL 20 MEQ 1,000 ML IV ×3 (01:34→21:50)
[2019-03-29] MEDS: FENTAnyl (DRIP) 1000 mcg/100mL 100 ML IV ×2 (01:38→21:37)
[2019-03-29 05:10] LABS: ADD MAN DIFF? NO
[2019-03-29 05:18] LABS: ABNORMAL IP MESSAGE 1; BASOPHILS % 0.3 % (0.0-2.0); EOSINOPHILS # 0.2 10^3/ul (0.0-0.5); EOSINOPHILS % 1.8 % (0.0-7.0); HEMATOCRIT 26.4 % (42.0-52.0); HEMOGLOBIN 8.5 g/dl (14.0-18.0); LYMPHOCYTES # 0.4 10^3/ul (0.8-2.9); LYMPHOCYTES % 3.7 % (15.0-51.0); MEAN CORPUSCULAR HEMOGLOBIN 29.3 pg (29.0-33.0); MEAN CORPUSCULAR HGB CONC 32.2 g/dl (32.0-37.0); MONOCYTE # 0.5 10^3/ul (0.3-0.9); MONOCYTES % 4.6 % (0.0-11.0); NEUTROPHIL # 10.3 10^3/ul (1.6-7.5); NEUTROPHILS % 89.3 % (39.0-77.0); PLATELET COUNT 214 10^3/UL (140-415); POSITIVE DIFF @See below; RED CELL DISTRIBUTION WIDTH 15.4 % (11.5-14.5)
[2019-03-29 05:18] LABS: WHITE BLOOD COUNT 11.5 10^3/ul (4.8-10.8)
[2019-03-29 05:49] LABS: ANION GAP 3 (5-13); BLOOD UREA NITROGEN 18 mg/dl (7-20); CALCIUM 8.5 mg/dl (8.4-10.2); CARBON DIOXIDE 26 mmol/L (21-31); CHLORIDE 107 mmol/L (97-110); CREATININE 0.59 mg/dl (0.61-1.24); GLUCOSE 129 mg/dl (70-220); MAGNESIUM 1.9 mg/dl (1.7-2.5); POTASSIUM 4.5 mmol/L (3.5-5.1); SODIUM 136 mmol/L (135-144)
[2019-03-29] MEDS: BISACODYL 10 MG SUPP PR (10:00)
[2019-03-29] MEDS: POLYETHYLENE GLYCOL 17 GM PACKET GTB (10:00)
[2019-03-29] MEDS: AMLODIPINE 10 MG TAB GTB (10:08)
[2019-03-29] MEDS: ENOXAPARIN 30 MG/0.3 ML SYG SC (10:08)
[2019-03-29] MEDS: AMIODARONE 200 MG TAB GTB ×2 (10:09→21:00)
[2019-03-29] MEDS: ASPIRIN 81 MG TAB GTB (10:09)
[2019-03-29] MEDS: LISINOPRIL 20 MG TAB GTB (10:16)
[2019-03-29] MEDS: FAMOTIDINE 20 MG INJ IV ×2 (10:18→21:47)
[2019-03-29] MEDS: CEFEPIME 2GM/50 ML (PMX) 50 ML IVPB (11:44)
[2019-03-29] MEDS: VANCOMYCIN 750 MG (PMX) 250 ML IVPB (17:59)
[2019-03-29] MEDS: TAMSULOSIN (SR) 0.4 MG CAP PO (21:42)
[2019-03-30] MEDS: INSULIN ASPART [NOVOLOG] 3 ML PEN SC ×6 (01:00→20:43)
[2019-03-30] MEDS: IPRATROPIUM (HFA) 12.9 GM INHALER INH ×6 (01:27→21:00)
[2019-03-30] MEDS: ALBUTEROL HFA 8 GM INHALER INH ×6 (01:28→21:00)
[2019-03-30] MEDS: MIDAZOLAM (DRIP) 50 mg/50 mL 50 ML IV (04:48)
[2019-03-30 05:14] LABS: ADD MAN DIFF? NO
[2019-03-30 05:21] LABS: WHITE BLOOD COUNT 18.3 10^3/ul (4.8-10.8)
[2019-03-30 05:21] LABS: BASOPHILS % 0.2 % (0.0-2.0); EOSINOPHILS # 0.1 10^3/ul (0.0-0.5); EOSINOPHILS % 0.7 % (0.0-7.0); HEMATOCRIT 27.1 % (42.0-52.0); HEMOGLOBIN 8.9 g/dl (14.0-18.0); LYMPHOCYTES # 0.9 10^3/ul (0.8-2.9); MEAN CORPUSCULAR HEMOGLOBIN 29.7 pg (29.0-33.0); MEAN CORPUSCULAR HGB CONC 32.8 g/dl (32.0-37.0); MEAN CORPUSCULAR VOLUME 90.3 fl (82.0-101.0); MEAN PLATELET VOLUME 9.4 fl (7.4-10.4); MONOCYTE # 0.7 10^3/ul (0.3-0.9); MONOCYTES % 3.6 % (0.0-11.0); NEUTROPHIL # 16.4 10^3/ul (1.6-7.5); NEUTROPHILS % 89.9 % (39.0-77.0); PLATELET COUNT 263 10^3/UL (140-415); RED CELL DISTRIBUTION WIDTH 15.4 % (11.5-14.5)
[2019-03-30 05:42] LABS: AADO2 Arterial 73.8 mmHg (7.0-24.0); Allen Test ACCEPTAB; Arterial Base Excess -2.4 mmol/L (-3.0-3); Arterial Blood Gas Oxygen Sat 97.8 mmHG (95.0-100.0); Arterial COHb 0.5 % (0.0-3.0); Arterial Fraction of Oxyhgb 96.9 % (93.0-99.0); Arterial HCO3 21.9 mmol/L (22.0-26.0); Arterial MetHb 0.4 % (0.0-1.5); Arterial pCO2 36.8 mmhg (35-45); MODE VENT - AC; Site Right Radial
[2019-03-30 06:23] LABS: ANION GAP 6 (5-13); BLOOD UREA NITROGEN 14 mg/dl (7-20); CALCIUM 8.4 mg/dl (8.4-10.2); CARBON DIOXIDE 23 mmol/L (21-31); CHLORIDE 104 mmol/L (97-110); CREATININE 0.55 mg/dl (0.61-1.24); GLUCOSE 131 mg/dl (70-220); POTASSIUM 4.7 mmol/L (3.5-5.1); SODIUM 133 mmol/L (135-144)
[2019-03-30] MEDS: AMIODARONE 200 MG TAB GTB ×2 (08:33→20:47)
[2019-03-30] MEDS: LISINOPRIL 20 MG TAB GTB (08:34)
[2019-03-30] MEDS: AMLODIPINE 10 MG TAB GTB (08:34)
[2019-03-30] MEDS: D5W-0.45 NACL + KCL 20 MEQ 1,000 ML IV ×2 (08:36→18:22)
[2019-03-30] MEDS: POLYETHYLENE GLYCOL 17 GM PACKET GTB (08:37)
[2019-03-30] MEDS: ASPIRIN 81 MG TAB GTB (08:37)
[2019-03-30] MEDS: FAMOTIDINE 20 MG INJ IV ×2 (08:38→20:54)
[2019-03-30] MEDS: BISACODYL 10 MG SUPP PR (08:38)
[2019-03-30] MEDS: ENOXAPARIN 30 MG/0.3 ML SYG SC (08:47)
[2019-03-30] MEDS: CEFEPIME 2GM/50 ML (PMX) 50 ML IVPB (12:29)
[2019-03-30] MEDS: METOCLOPRAMIDE 10 MG INJ IV ×2 (12:29→18:20)
[2019-03-30] MEDS: DEXMEDETOMIDINE HCL 200 MCG in SOD CHLORIDE 0.9% 48 ML IV (16:54)
[2019-03-30 17:13] LABS: VANCOMYCIN,TROUGH 5.8 ug/ml (10.0-20.0)
[2019-03-30] MEDS: VANCOMYCIN 750 MG (PMX) 250 ML IVPB (18:20)
[2019-03-30] MEDS: TAMSULOSIN (SR) 0.4 MG CAP PO (20:46)
[2019-03-31] MEDS: INSULIN ASPART [NOVOLOG] 3 ML PEN SC ×6 (00:37→21:00)
[2019-03-31] MEDS: METOCLOPRAMIDE 10 MG INJ IV ×4 (00:38→17:57)
[2019-03-31] MEDS: IPRATROPIUM (HFA) 12.9 GM INHALER INH ×6 (01:01→21:52)
[2019-03-31] MEDS: ALBUTEROL HFA 8 GM INHALER INH ×6 (01:01→21:52)
[2019-03-31] MEDS: DEXMEDETOMIDINE HCL 200 MCG in SOD CHLORIDE 0.9% 48 ML IV (04:48)
[2019-03-31] MEDS ORDERED: VANCOMYCIN 500 MG (PMX) 100 ML IVPB (05:00)
[2019-03-31 05:30] LABS: ADD MAN DIFF? NO
[2019-03-31 05:35] LABS: ABNORMAL IP MESSAGE 1; BASOPHILS % 0.1 % (0.0-2.0); EOSINOPHILS # 0.1 10^3/ul (0.0-0.5); EOSINOPHILS % 0.8 % (0.0-7.0); HEMATOCRIT 21.2 % (42.0-52.0); HEMOGLOBIN 7.1 g/dl (14.0-18.0); LYMPHOCYTES # 0.4 10^3/ul (0.8-2.9); LYMPHOCYTES % 5.4 % (15.0-51.0); MEAN CORPUSCULAR HEMOGLOBIN 29.7 pg (29.0-33.0); MEAN CORPUSCULAR HGB CONC 33.5 g/dl (32.0-37.0); MEAN CORPUSCULAR VOLUME 88.7 fl (82.0-101.0); MEAN PLATELET VOLUME 9.1 fl (7.4-10.4); MONOCYTE # 0.4 10^3/ul (0.3-0.9); MONOCYTES % 4.9 % (0.0-11.0); NEUTROPHIL # 6.9 10^3/ul (1.6-7.5); NEUTROPHILS % 88.3 % (39.0-77.0); PLATELET COUNT 176 10^3/UL (140-415); POSITIVE DIFF @See below; RED BLOOD COUNT 2.39 10^6/ul (4.70-6.10); RED CELL DISTRIBUTION WIDTH 14.6 % (11.5-14.5)
[2019-03-31 05:35] LABS: WHITE BLOOD COUNT 7.8 10^3/ul (4.8-10.8)
[2019-03-31] MEDS: VANCOMYCIN 750 MG (PMX) 250 ML IVPB ×2 (05:39→17:57)
[2019-03-31 05:58] LABS: ANION GAP 4 (5-13); BLOOD UREA NITROGEN 10 mg/dl (7-20); CALCIUM 7.9 mg/dl (8.4-10.2); CARBON DIOXIDE 26 mmol/L (21-31); CHLORIDE 102 mmol/L (97-110); CREATININE 0.49 mg/dl (0.61-1.24); GLUCOSE 112 mg/dl (70-220); POTASSIUM 4.1 mmol/L (3.5-5.1); SODIUM 132 mmol/L (135-144)
[2019-03-31] MEDS: FENTAnyl (DRIP) 1000 mcg/100mL 100 ML IV (06:47)
[2019-03-31] MEDS: D5W-0.45 NACL + KCL 20 MEQ 1,000 ML IV ×3 (07:00→16:14)
[2019-03-31 07:10] LABS: ADD MAN DIFF? NO
[2019-03-31 07:13] LABS: WHITE BLOOD COUNT 8.6 10^3/ul (4.8-10.8)
[2019-03-31 07:13] LABS: BASOPHILS % 0.2 % (0.0-2.0); EOSINOPHILS # 0.1 10^3/ul (0.0-0.5); HEMATOCRIT 23.4 % (42.0-52.0); HEMOGLOBIN 7.8 g/dl (14.0-18.0); LYMPHOCYTES # 0.8 10^3/ul (0.8-2.9); LYMPHOCYTES % 9.1 % (15.0-51.0); MEAN CORPUSCULAR HEMOGLOBIN 29.5 pg (29.0-33.0); MEAN CORPUSCULAR HGB CONC 33.3 g/dl (32.0-37.0); MEAN CORPUSCULAR VOLUME 88.6 fl (82.0-101.0); MEAN PLATELET VOLUME 9.3 fl (7.4-10.4); MONOCYTE # 0.4 10^3/ul (0.3-0.9); MONOCYTES % 4.8 % (0.0-11.0); NEUTROPHIL # 7.3 10^3/ul (1.6-7.5); NEUTROPHILS % 84.3 % (39.0-77.0); PLATELET COUNT 184 10^3/UL (140-415); RED BLOOD COUNT 2.64 10^6/ul (4.70-6.10); RED CELL DISTRIBUTION WIDTH 14.8 % (11.5-14.5)
[2019-03-31] MEDS: AMIODARONE 200 MG TAB GTB ×2 (09:43→21:00)
[2019-03-31] MEDS: BISACODYL 10 MG SUPP PR (09:43)
[2019-03-31] MEDS: POLYETHYLENE GLYCOL 17 GM PACKET GTB (09:43)
[2019-03-31] MEDS: ASPIRIN 81 MG TAB GTB (09:43)
[2019-03-31] MEDS: AMLODIPINE 10 MG TAB GTB (09:43)
[2019-03-31] MEDS: LISINOPRIL 20 MG TAB GTB (09:44)
[2019-03-31] MEDS: FAMOTIDINE 20 MG INJ IV ×2 (09:46→21:32)
[2019-03-31] MEDS: ENOXAPARIN 30 MG/0.3 ML SYG SC (09:49)
[2019-03-31 11:38] LABS: AADO2 Arterial 69.5 mmHg (7.0-24.0); Allen Test ACCEPTAB; Arterial Base Excess 1.7 mmol/L (-3.0-3); Arterial Blood Gas Oxygen Sat 97.8 mmHG (95.0-100.0); Arterial COHb 0.3 % (0.0-3.0); Arterial Fraction of Oxyhgb 97.2 % (93.0-99.0); Arterial HCO3 25.6 mmol/L (22.0-26.0); Arterial MetHb 0.3 % (0.0-1.5); Arterial pCO2 37.6 mmhg (35-45); Blood Gas PS 10; MODE VENT - BIPHASIC; Site Right Radial
[2019-03-31] MEDS: CEFEPIME 2GM/50 ML (PMX) 50 ML IVPB (12:41)
[2019-03-31] MEDS ORDERED: LORAZEPAM 2 MG INJ (15:59)
[2019-03-31] MEDS: LORAZEPAM 2 MG INJ IV (16:05)
[2019-03-31] MEDS: hydrALAzine 20 MG INJ IV (16:11)
[2019-03-31] MEDS: TAMSULOSIN (SR) 0.4 MG CAP PO (21:00)
[2019-04-01] MEDS: METOCLOPRAMIDE 10 MG INJ IV ×4 (00:45→17:44)
[2019-04-01] MEDS: INSULIN ASPART [NOVOLOG] 3 ML PEN SC ×6 (00:47→20:45)
[2019-04-01] MEDS: ALBUTEROL HFA 8 GM INHALER INH ×2 (01:15→05:00)
[2019-04-01] MEDS: IPRATROPIUM (HFA) 12.9 GM INHALER INH ×2 (01:16→05:00)
[2019-04-01] MEDS: hydrALAzine 20 MG INJ IV (03:08)
[2019-04-01] MEDS: D5W-0.45 NACL + KCL 20 MEQ 1,000 ML IV ×2 (04:51→15:11)
[2019-04-01] MEDS: VANCOMYCIN 750 MG (PMX) 250 ML IVPB (04:58)
[2019-04-01 05:11] LABS: ADD MAN DIFF? NO
[2019-04-01 05:50] LABS: ABNORMAL IP MESSAGE 1; BASOPHILS % 0.2 % (0.0-2.0); EOSINOPHILS % 0.2 % (0.0-7.0); HEMATOCRIT 24.5 % (42.0-52.0); HEMOGLOBIN 8.2 g/dl (14.0-18.0); LYMPHOCYTES # 0.4 10^3/ul (0.8-2.9); LYMPHOCYTES % 4.1 % (15.0-51.0); MEAN CORPUSCULAR HEMOGLOBIN 29.2 pg (29.0-33.0); MEAN CORPUSCULAR HGB CONC 33.5 g/dl (32.0-37.0); MEAN CORPUSCULAR VOLUME 87.2 fl (82.0-101.0); MEAN PLATELET VOLUME 9.3 fl (7.4-10.4); MONOCYTE # 0.6 10^3/ul (0.3-0.9); MONOCYTES % 5.8 % (0.0-11.0); NEUTROPHIL # 8.4 10^3/ul (1.6-7.5); NEUTROPHILS % 89.1 % (39.0-77.0); PLATELET COUNT 253 10^3/UL (140-415); POSITIVE DIFF @See below; RED BLOOD COUNT 2.81 10^6/ul (4.70-6.10); RED CELL DISTRIBUTION WIDTH 14.5 % (11.5-14.5)
[2019-04-01 05:50] LABS: WHITE BLOOD COUNT 9.4 10^3/ul (4.8-10.8)
[2019-04-01 05:57] LABS: ANION GAP 4 (5-13); BLOOD UREA NITROGEN 4 mg/dl (7-20); CALCIUM 8.1 mg/dl (8.4-10.2); CARBON DIOXIDE 30 mmol/L (21-31); CHLORIDE 99 mmol/L (97-110); CREATININE 0.46 mg/dl (0.61-1.24); GLUCOSE 160 mg/dl (70-220); POTASSIUM 3.4 mmol/L (3.5-5.1); SODIUM 133 mmol/L (135-144)
[2019-04-01] MEDS: LISINOPRIL 20 MG TAB GTB (09:00)
[2019-04-01] MEDS: ENOXAPARIN 30 MG/0.3 ML SYG SC (09:00)
[2019-04-01] MEDS: POLYETHYLENE GLYCOL 17 GM PACKET GTB (09:00)
[2019-04-01] MEDS: AMIODARONE 200 MG TAB GTB ×2 (09:00→20:43)
[2019-04-01] MEDS: AMLODIPINE 10 MG TAB GTB (09:00)
[2019-04-01] MEDS: ASPIRIN 81 MG TAB GTB (09:00)
[2019-04-01] MEDS: BISACODYL 10 MG SUPP PR (09:01)
[2019-04-01] MEDS: FAMOTIDINE 20 MG INJ IV ×2 (09:21→20:47)
[2019-04-01] MEDS: ALBUTEROL/IPRATROPIUM (NEB) 3 ML AMP HHN ×3 (09:59→20:18)
[2019-04-01] MEDS: CEFEPIME 2GM/50 ML (PMX) 50 ML IVPB (11:50)
[2019-04-01 16:46] LABS: VANCOMYCIN,TROUGH 9.2 ug/ml (10.0-20.0)
[2019-04-01] MEDS: POTASSIUM CHLORIDE 100 ML IVPB (18:44)
[2019-04-01] MEDS: TAMSULOSIN (SR) 0.4 MG CAP PO (20:43)
[2019-04-02] MEDS: METOCLOPRAMIDE 10 MG INJ IV ×4 (00:45→17:52)
[2019-04-02] MEDS: INSULIN ASPART [NOVOLOG] 3 ML PEN SC ×7 (00:45→20:57)
[2019-04-02] MEDS: ALBUTEROL/IPRATROPIUM (NEB) 3 ML AMP HHN ×4 (01:39→19:28)
[2019-04-02] MEDS: AMIODARONE 200 MG TAB GTB ×2 (08:09→20:31)
[2019-04-02] MEDS: POLYETHYLENE GLYCOL 17 GM PACKET GTB (08:09)
[2019-04-02] MEDS: AMLODIPINE 10 MG TAB GTB (08:09)
[2019-04-02] MEDS: LISINOPRIL 20 MG TAB GTB (08:09)
[2019-04-02] MEDS: ASPIRIN 81 MG TAB GTB (08:09)
[2019-04-02 08:13] LABS: AADO2 Arterial 23.6 mmHg (7.0-24.0); Allen Test ACCEPTAB; Arterial Base Excess 5.1 mmol/L (-3.0-3); Arterial Blood Gas Oxygen Sat 94.8 mmHG (95.0-100.0); Arterial COHb 0.1 % (0.0-3.0); Arterial Fraction of Oxyhgb 94.5 % (93.0-99.0); Arterial HCO3 29.3 mmol/L (22.0-26.0); Arterial MetHb 0.2 % (0.0-1.5); Arterial pCO2 41.9 mmhg (35-45); MODE ROOM AIR; Site Left Radial
[2019-04-02 08:17] LABS: ADD MAN DIFF? NO
[2019-04-02] MEDS: FAMOTIDINE 20 MG INJ IV ×2 (08:19→20:46)
[2019-04-02] MEDS: BISACODYL 10 MG SUPP PR (08:19)
[2019-04-02] MEDS: ENOXAPARIN 30 MG/0.3 ML SYG SC (08:22)
[2019-04-02 08:25] LABS: ABNORMAL IP MESSAGE 1; BASOPHILS % 0.5 % (0.0-2.0); EOSINOPHILS # 0.1 10^3/ul (0.0-0.5); HEMATOCRIT 25.7 % (42.0-52.0); HEMOGLOBIN 8.6 g/dl (14.0-18.0); LYMPHOCYTES # 0.5 10^3/ul (0.8-2.9); LYMPHOCYTES % 8.8 % (15.0-51.0); MEAN CORPUSCULAR HEMOGLOBIN 29.1 pg (29.0-33.0); MEAN CORPUSCULAR HGB CONC 33.5 g/dl (32.0-37.0); MEAN CORPUSCULAR VOLUME 86.8 fl (82.0-101.0); MEAN PLATELET VOLUME 9.2 fl (7.4-10.4); MONOCYTE # 0.4 10^3/ul (0.3-0.9); MONOCYTES % 7.1 % (0.0-11.0); NEUTROPHILS % 82.3 % (39.0-77.0); PLATELET COUNT 294 10^3/UL (140-415); POSITIVE DIFF @See below; RED BLOOD COUNT 2.96 10^6/ul (4.70-6.10); RED CELL DISTRIBUTION WIDTH 14.7 % (11.5-14.5)
[2019-04-02 08:56] LABS: ANION GAP 5 (5-13); BLOOD UREA NITROGEN 3 mg/dl (7-20); CALCIUM 8.6 mg/dl (8.4-10.2); CARBON DIOXIDE 29 mmol/L (21-31); CHLORIDE 98 mmol/L (97-110); CREATININE 0.51 mg/dl (0.61-1.24); GLUCOSE 97 mg/dl (70-220); MAGNESIUM 1.6 mg/dl (1.7-2.5); PHOSPHORUS 3.2 mg/dl (2.5-4.9); POTASSIUM 3.7 mmol/L (3.5-5.1); SODIUM 132 mmol/L (135-144)
[2019-04-02] MEDS: CEFEPIME 2GM/50 ML (PMX) 50 ML IVPB (12:38)
[2019-04-02] MEDS: D5W-0.45 NACL + KCL 20 MEQ 1,000 ML IV (13:17)
[2019-04-02] MEDS: TAMSULOSIN (SR) 0.4 MG CAP PO (20:31)
[2019-04-02] MEDS: MAGNESIUM SULFATE 2 GM/50 ML 50 ML IVPB (20:46)
[2019-04-03] MEDS: METOCLOPRAMIDE 10 MG INJ IV ×4 (00:35→18:24)
[2019-04-03] MEDS: D5W-0.45 NACL + KCL 20 MEQ 1,000 ML IV ×2 (00:37→15:58)
[2019-04-03] MEDS: ALBUTEROL/IPRATROPIUM (NEB) 3 ML AMP HHN ×4 (01:19→20:26)
[2019-04-03] MEDS: LORAZEPAM 2 MG INJ IV (05:41)
[2019-04-03] MEDS: INSULIN ASPART [NOVOLOG] 3 ML PEN SC ×4 (07:21→21:00)
[2019-04-03 08:10] LABS: ANION GAP 4 (5-13); BLOOD UREA NITROGEN 5 mg/dl (7-20); CALCIUM 8.1 mg/dl (8.4-10.2); CARBON DIOXIDE 30 mmol/L (21-31); CHLORIDE 99 mmol/L (97-110); CREATININE 0.53 mg/dl (0.61-1.24); GLUCOSE 109 mg/dl (70-220); POTASSIUM 3.9 mmol/L (3.5-5.1); SODIUM 133 mmol/L (135-144)
[2019-04-03] MEDS: POLYETHYLENE GLYCOL 17 GM PACKET GTB (08:58)
[2019-04-03] MEDS: AMIODARONE 200 MG TAB GTB ×2 (08:58→21:00)
[2019-04-03] MEDS: ASPIRIN 81 MG TAB GTB (08:58)
[2019-04-03] MEDS: AMLODIPINE 10 MG TAB GTB (08:59)
[2019-04-03] MEDS: LISINOPRIL 20 MG TAB GTB (08:59)
[2019-04-03] MEDS: BISACODYL 10 MG SUPP PR (09:06)
[2019-04-03] MEDS: FAMOTIDINE 20 MG INJ IV ×2 (09:06→21:05)
[2019-04-03] MEDS: ENOXAPARIN 30 MG/0.3 ML SYG SC (09:12)
[2019-04-03] MEDS: CEFEPIME 2GM/50 ML (PMX) 50 ML IVPB (12:40)
[2019-04-03] MEDS ORDERED: GLUCOSE GEL 15 GRAM TUBE PO ×2 (20:30)
[2019-04-03] MEDS ORDERED: GLUCAGON 1 MG INJ IM (20:30)
[2019-04-03] MEDS ORDERED: DEXTROSE 50% 50 ML SYRINGE IV ×2 (20:30)
[2019-04-03] MEDS ORDERED: GLUCOSE GEL 15 GRAM TUBE BUCCAL (20:30)
[2019-04-03] MEDS: TAMSULOSIN (SR) 0.4 MG CAP PO (21:00)
[2019-04-04] MEDS: METOCLOPRAMIDE 10 MG INJ IV ×4 (00:45→18:22)
[2019-04-04] MEDS: LORAZEPAM 2 MG INJ IV ×2 (01:41→08:50)
[2019-04-04] MEDS: ALBUTEROL/IPRATROPIUM (NEB) 3 ML AMP HHN ×4 (01:57→19:32)
[2019-04-04] MEDS: hydrALAzine 20 MG INJ IV (02:53)
[2019-04-04] MEDS: HALOPERIDOL 5 MG INJ IM (05:33)
[2019-04-04] MEDS: INSULIN ASPART [NOVOLOG] 3 ML PEN SC ×4 (08:30→21:00)
[2019-04-04] MEDS: ASPIRIN 81 MG TAB GTB (08:43)
[2019-04-04] MEDS: D5W-0.45 NACL + KCL 20 MEQ 1,000 ML IV (08:43)
[2019-04-04] MEDS: POLYETHYLENE GLYCOL 17 GM PACKET GTB (08:44)
[2019-04-04] MEDS: AMLODIPINE 10 MG TAB GTB (08:44)
[2019-04-04] MEDS: AMIODARONE 200 MG TAB GTB ×2 (08:44→20:23)
[2019-04-04] MEDS: LISINOPRIL 20 MG TAB GTB (08:45)
[2019-04-04] MEDS: BISACODYL 10 MG SUPP PR (08:49)
[2019-04-04] MEDS: FAMOTIDINE 20 MG INJ IV ×2 (08:49→20:24)
[2019-04-04 09:33] LABS: ANION GAP 5 (5-13); BLOOD UREA NITROGEN 5 mg/dl (7-20); CALCIUM 8.5 mg/dl (8.4-10.2); CARBON DIOXIDE 29 mmol/L (21-31); CHLORIDE 100 mmol/L (97-110); CREATININE 0.54 mg/dl (0.61-1.24); GLUCOSE 117 mg/dl (70-220); SODIUM 134 mmol/L (135-144)
[2019-04-04] MEDS ORDERED: hydrALAzine 20 MG INJ IV (16:00)
[2019-04-04] MEDS ORDERED: ONDANSETRON 4 MG INJ IV (16:00)
[2019-04-04] MEDS ORDERED: LABETALOL HCL 20MG INJ IV (16:00)
[2019-04-04] MEDS ORDERED: METOCLOPRAMIDE 10 MG INJ IV (16:00)
[2019-04-04] MEDS ORDERED: FENTAnyl 50 MCG/ML VIAL IV ×2 (16:00)
[2019-04-04] MEDS ORDERED: HYDROmorphONE 1 MG/5 ML IV SYRINGE IV ×2 (16:00)
[2019-04-04] MEDS ORDERED: EPHEDrine 25 MG/5 ML SYG IV (16:00)
[2019-04-04] MEDS: PROPOFOL 20 ML (18:00)
[2019-04-04] MEDS: CEFAZOLIN 2 GM/50 ML (PMX) 50 ML IVPB (18:00)
[2019-04-04] MEDS: TAMSULOSIN (SR) 0.4 MG CAP PO (20:23)
[2019-04-04] MEDS: ACETAMINOPHEN 650MG/20.3ML CUP PO (20:57)
[2019-04-05] MEDS: METOCLOPRAMIDE 10 MG INJ IV ×3 (00:22→12:00)
[2019-04-05] MEDS: ALBUTEROL/IPRATROPIUM (NEB) 3 ML AMP HHN ×4 (01:38→19:52)
[2019-04-05] MEDS: ACETAMINOPHEN 650MG/20.3ML CUP PO ×3 (04:01→21:43)
[2019-04-05] MEDS: D5W-0.45 NACL + KCL 20 MEQ 1,000 ML IV ×2 (04:02→21:57)
[2019-04-05 05:36] LABS: ADD MAN DIFF? NO
[2019-04-05 05:41] LABS: WHITE BLOOD COUNT 9.1 10^3/ul (4.8-10.8)
[2019-04-05 05:41] LABS: ABNORMAL IP MESSAGE 1; BASOPHILS % 0.4 % (0.0-2.0); EOSINOPHILS # 0.1 10^3/ul (0.0-0.5); EOSINOPHILS % 1.3 % (0.0-7.0); HEMATOCRIT 25.3 % (42.0-52.0); HEMOGLOBIN 8.4 g/dl (14.0-18.0); LYMPHOCYTES # 0.6 10^3/ul (0.8-2.9); LYMPHOCYTES % 6.1 % (15.0-51.0); MEAN CORPUSCULAR HEMOGLOBIN 29.3 pg (29.0-33.0); MEAN CORPUSCULAR HGB CONC 33.2 g/dl (32.0-37.0); MEAN CORPUSCULAR VOLUME 88.2 fl (82.0-101.0); MEAN PLATELET VOLUME 8.7 fl (7.4-10.4); MONOCYTE # 0.5 10^3/ul (0.3-0.9); MONOCYTES % 5.7 % (0.0-11.0); NEUTROPHIL # 7.8 10^3/ul (1.6-7.5); PLATELET COUNT 327 10^3/UL (140-415); POSITIVE DIFF @See below; RED BLOOD COUNT 2.87 10^6/ul (4.70-6.10); RED CELL DISTRIBUTION WIDTH 14.6 % (11.5-14.5)
[2019-04-05 06:47] LABS: ANION GAP 6 (5-13); BLOOD UREA NITROGEN 6 mg/dl (7-20); CALCIUM 8.3 mg/dl (8.4-10.2); CARBON DIOXIDE 27 mmol/L (21-31); CHLORIDE 101 mmol/L (97-110); GLUCOSE 149 mg/dl (70-220); POTASSIUM 4.4 mmol/L (3.5-5.1); SODIUM 134 mmol/L (135-144)
[2019-04-05] MEDS: BISACODYL 10 MG SUPP PR (09:00)
[2019-04-05] MEDS: INSULIN ASPART [NOVOLOG] 3 ML PEN SC (09:10)
[2019-04-05] MEDS: FAMOTIDINE 20 MG INJ IV ×2 (09:23→21:45)
[2019-04-05] MEDS: LISINOPRIL 20 MG TAB GTB (09:23)
[2019-04-05] MEDS: AMIODARONE 200 MG TAB GTB ×2 (09:24→21:44)
[2019-04-05] MEDS: AMLODIPINE 10 MG TAB GTB (09:24)
[2019-04-05] MEDS: ASPIRIN 81 MG TAB GTB (09:28)
[2019-04-05] MEDS ORDERED: BISACODYL 10 MG SUPP PR (11:00)
[2019-04-05] MEDS: POLYETHYLENE GLYCOL 17 GM PACKET GTB (15:20)
[2019-04-05] MEDS: Insulin NOVOLOG SS MILD Algorithm (NPO/TPN/ENTERAL FEEDS) SC ×2 (15:20→23:56)
[2019-04-05] MEDS ORDERED: METOCLOPRAMIDE 10 MG INJ IV (17:00)
[2019-04-05] MEDS ORDERED: INSULIN ASPART [NOVOLOG] 3 ML PEN SC (18:00)
[2019-04-05] MEDS: TAMSULOSIN (SR) 0.4 MG CAP PO (21:44)
[2019-04-06] MEDS: ALBUTEROL/IPRATROPIUM (NEB) 3 ML AMP HHN ×4 (01:14→20:48)
[2019-04-06] MEDS: ACETAMINOPHEN 650MG/20.3ML CUP PO (04:25)
[2019-04-06 05:25] LABS: ADD MAN DIFF? NO
[2019-04-06 05:35] LABS: WHITE BLOOD COUNT 17.8 10^3/ul (4.8-10.8)
[2019-04-06 05:35] LABS: BASOPHILS % 0.2 % (0.0-2.0); EOSINOPHILS % 0.2 % (0.0-7.0); HEMATOCRIT 25.4 % (42.0-52.0); HEMOGLOBIN 8.4 g/dl (14.0-18.0); LYMPHOCYTES # 0.6 10^3/ul (0.8-2.9); LYMPHOCYTES % 3.5 % (15.0-51.0); MEAN CORPUSCULAR HGB CONC 33.1 g/dl (32.0-37.0); MEAN CORPUSCULAR VOLUME 87.6 fl (82.0-101.0); MEAN PLATELET VOLUME 8.8 fl (7.4-10.4); MONOCYTE # 0.8 10^3/ul (0.3-0.9); MONOCYTES % 4.4 % (0.0-11.0); NEUTROPHIL # 16.1 10^3/ul (1.6-7.5); NEUTROPHILS % 90.6 % (39.0-77.0); PLATELET COUNT 317 10^3/UL (140-415); RED CELL DISTRIBUTION WIDTH 14.6 % (11.5-14.5)
[2019-04-06] MEDS: Insulin NOVOLOG SS MILD Algorithm (NPO/TPN/ENTERAL FEEDS) SC ×4 (05:59→23:49)
[2019-04-06 06:14] LABS: ANION GAP 4 (5-13); BLOOD UREA NITROGEN 10 mg/dl (7-20); CALCIUM 8.3 mg/dl (8.4-10.2); CARBON DIOXIDE 28 mmol/L (21-31); CHLORIDE 97 mmol/L (97-110); CREATININE 0.53 mg/dl (0.61-1.24); GLUCOSE 165 mg/dl (70-220); POTASSIUM 4.4 mmol/L (3.5-5.1); SODIUM 129 mmol/L (135-144)
[2019-04-06] MEDS: AMLODIPINE 10 MG TAB GTB (09:41)
[2019-04-06] MEDS: ASPIRIN 81 MG TAB GTB (09:41)
[2019-04-06] MEDS: LISINOPRIL 20 MG TAB GTB (09:42)
[2019-04-06] MEDS: AMIODARONE 200 MG TAB GTB ×2 (09:42→21:22)
[2019-04-06] MEDS: FAMOTIDINE 20 MG INJ IV ×2 (09:43→21:23)
[2019-04-06] MEDS: POLYETHYLENE GLYCOL 17 GM PACKET GTB (09:47)
[2019-04-06] MEDS: D5W-0.45 NACL + KCL 20 MEQ 1,000 ML IV ×2 (10:10→15:11)
[2019-04-06] MEDS: TAMSULOSIN (SR) 0.4 MG CAP PO (21:23)
[2019-04-07] MEDS: ALBUTEROL/IPRATROPIUM (NEB) 3 ML AMP HHN ×4 (00:57→19:43)
[2019-04-07] MEDS: LORAZEPAM 2 MG INJ IV ×2 (02:20→08:37)
[2019-04-07] MEDS: Insulin NOVOLOG SS MILD Algorithm (NPO/TPN/ENTERAL FEEDS) SC ×4 (06:00→23:18)
[2019-04-07] MEDS: FAMOTIDINE 20 MG INJ IV ×2 (08:22→20:49)
[2019-04-07] MEDS: POLYETHYLENE GLYCOL 17 GM PACKET GTB (08:22)
[2019-04-07] MEDS: AMLODIPINE 10 MG TAB GTB (08:22)
[2019-04-07] MEDS: ASPIRIN 81 MG TAB GTB (08:22)
[2019-04-07] MEDS: LISINOPRIL 20 MG TAB GTB (08:23)
[2019-04-07] MEDS: AMIODARONE 200 MG TAB GTB ×2 (08:23→20:49)
[2019-04-07] MEDS: TAMSULOSIN (SR) 0.4 MG CAP PO (20:49)
[2019-04-08] MEDS: ALBUTEROL/IPRATROPIUM (NEB) 3 ML AMP HHN ×4 (01:02→20:00)
[2019-04-08] MEDS: ACETAMINOPHEN 650MG/20.3ML CUP PO (05:30)
[2019-04-08] MEDS: Insulin NOVOLOG SS MILD Algorithm (NPO/TPN/ENTERAL FEEDS) SC ×3 (05:41→17:42)
[2019-04-08 06:00] LABS: ADD MAN DIFF? NO
[2019-04-08 06:08] LABS: BASOPHILS % 0.3 % (0.0-2.0); EOSINOPHILS % 0.3 % (0.0-7.0); HEMATOCRIT 26.6 % (42.0-52.0); HEMOGLOBIN 8.9 g/dl (14.0-18.0); LYMPHOCYTES # 0.9 10^3/ul (0.8-2.9); LYMPHOCYTES % 6.2 % (15.0-51.0); MEAN CORPUSCULAR HEMOGLOBIN 29.4 pg (29.0-33.0); MEAN CORPUSCULAR HGB CONC 33.5 g/dl (32.0-37.0); MEAN CORPUSCULAR VOLUME 87.8 fl (82.0-101.0); MONOCYTE # 0.7 10^3/ul (0.3-0.9); MONOCYTES % 4.4 % (0.0-11.0); NEUTROPHIL # 13.3 10^3/ul (1.6-7.5); NEUTROPHILS % 88.2 % (39.0-77.0); PLATELET COUNT 308 10^3/UL (140-415); RED BLOOD COUNT 3.03 10^6/ul (4.70-6.10); RED CELL DISTRIBUTION WIDTH 14.7 % (11.5-14.5)
[2019-04-08] MEDS: LISINOPRIL 20 MG TAB GTB (09:04)
[2019-04-08] MEDS: AMLODIPINE 10 MG TAB GTB (09:04)
[2019-04-08] MEDS: ASPIRIN 81 MG TAB GTB (09:04)
[2019-04-08] MEDS: AMIODARONE 200 MG TAB GTB ×2 (09:04→20:55)
[2019-04-08] MEDS: FAMOTIDINE 20 MG INJ IV ×2 (09:04→20:55)
[2019-04-08] MEDS: POLYETHYLENE GLYCOL 17 GM PACKET GTB (09:04)
[2019-04-08] MEDS: LORAZEPAM 2 MG INJ IV (09:10)
[2019-04-08] MEDS: TAMSULOSIN (SR) 0.4 MG CAP PO (20:54)
[2019-04-08 22:30] LABS: PROCALCITONIN 0.31 ng/mL (0.00-0.10)
[2019-04-09] MEDS: Insulin NOVOLOG SS MILD Algorithm (NPO/TPN/ENTERAL FEEDS) SC ×5 (00:26→23:55)
[2019-04-09] MEDS: ACETAMINOPHEN 650MG/20.3ML CUP PO ×2 (00:46→09:58)
[2019-04-09] MEDS: ALBUTEROL/IPRATROPIUM (NEB) 3 ML AMP HHN ×4 (01:34→19:56)
[2019-04-09 05:35] LABS: ADD MAN DIFF? NO
[2019-04-09 05:37] LABS: WHITE BLOOD COUNT 11.1 10^3/ul (4.8-10.8)
[2019-04-09 05:37] LABS: BASOPHILS % 0.3 % (0.0-2.0); EOSINOPHILS % 0.2 % (0.0-7.0); HEMOGLOBIN 8.2 g/dl (14.0-18.0); LYMPHOCYTES # 0.6 10^3/ul (0.8-2.9); LYMPHOCYTES % 5.8 % (15.0-51.0); MEAN CORPUSCULAR HEMOGLOBIN 29.7 pg (29.0-33.0); MEAN CORPUSCULAR HGB CONC 34.2 g/dl (32.0-37.0); MEAN PLATELET VOLUME 8.8 fl (7.4-10.4); MONOCYTE # 0.5 10^3/ul (0.3-0.9); NEUTROPHIL # 9.9 10^3/ul (1.6-7.5); NEUTROPHILS % 89.2 % (39.0-77.0); PLATELET COUNT 319 10^3/UL (140-415); RED BLOOD COUNT 2.76 10^6/ul (4.70-6.10); RED CELL DISTRIBUTION WIDTH 14.6 % (11.5-14.5)
[2019-04-09 06:19] LABS: ANION GAP 6 (5-13); BLOOD UREA NITROGEN 17 mg/dl (7-20); CALCIUM 8.4 mg/dl (8.4-10.2); CARBON DIOXIDE 28 mmol/L (21-31); CHLORIDE 94 mmol/L (97-110); CREATININE 0.66 mg/dl (0.61-1.24); GLUCOSE 144 mg/dl (70-220); POTASSIUM 4.5 mmol/L (3.5-5.1); SODIUM 128 mmol/L (135-144)
[2019-04-09] MEDS: AMLODIPINE 10 MG TAB GTB (09:58)
[2019-04-09] MEDS: POLYETHYLENE GLYCOL 17 GM PACKET GTB (09:58)
[2019-04-09] MEDS: FAMOTIDINE 20 MG INJ IV ×2 (09:59→20:37)
[2019-04-09] MEDS: AMIODARONE 200 MG TAB GTB ×2 (09:59→20:37)
[2019-04-09] MEDS: ASPIRIN 81 MG TAB GTB (09:59)
[2019-04-09] MEDS: LISINOPRIL 20 MG TAB GTB (10:00)
[2019-04-09] MEDS: NACL 0.9% 3 ML SYG IV (10:02)
[2019-04-09] MEDS: SOD CHLORIDE 0.9% 1,000 ML IV (12:47)
[2019-04-09] MEDS: LORAZEPAM 2 MG INJ IV ×2 (12:47→16:55)
[2019-04-09] MEDS: TAMSULOSIN (SR) 0.4 MG CAP PO (20:37)
[2019-04-09] MEDS: QUETIAPINE 25 MG TAB GTB (20:37)
[2019-04-10] MEDS: ALBUTEROL/IPRATROPIUM (NEB) 3 ML AMP HHN ×4 (01:58→19:46)
[2019-04-10] MEDS: SOD CHLORIDE 0.9% 1,000 ML IV ×3 (03:40→20:12)
[2019-04-10] MEDS: Insulin NOVOLOG SS MILD Algorithm (NPO/TPN/ENTERAL FEEDS) SC ×3 (05:37→17:43)
[2019-04-10 06:00] LABS: ANION GAP 5 (5-13); BLOOD UREA NITROGEN 14 mg/dl (7-20); CALCIUM 8.4 mg/dl (8.4-10.2); CARBON DIOXIDE 28 mmol/L (21-31); CHLORIDE 98 mmol/L (97-110); CREATININE 0.54 mg/dl (0.61-1.24); GLUCOSE 128 mg/dl (70-220); POTASSIUM 4.6 mmol/L (3.5-5.1); SODIUM 131 mmol/L (135-144)
[2019-04-10 09:09] LABS: ADD MAN DIFF? NO
[2019-04-10 09:11] LABS: BASOPHIL # 0.1 10^3/ul (0.0-0.1); BASOPHILS % 0.5 % (0.0-2.0); EOSINOPHILS # 0.1 10^3/ul (0.0-0.5); EOSINOPHILS % 0.7 % (0.0-7.0); HEMATOCRIT 26.3 % (42.0-52.0); HEMOGLOBIN 8.7 g/dl (14.0-18.0); LYMPHOCYTES # 0.8 10^3/ul (0.8-2.9); LYMPHOCYTES % 7.2 % (15.0-51.0); MEAN CORPUSCULAR HEMOGLOBIN 29.3 pg (29.0-33.0); MEAN CORPUSCULAR HGB CONC 33.1 g/dl (32.0-37.0); MEAN CORPUSCULAR VOLUME 88.6 fl (82.0-101.0); MEAN PLATELET VOLUME 8.7 fl (7.4-10.4); MONOCYTE # 0.5 10^3/ul (0.3-0.9); MONOCYTES % 4.9 % (0.0-11.0); NEUTROPHILS % 86.1 % (39.0-77.0); PLATELET COUNT 411 10^3/UL (140-415); RED BLOOD COUNT 2.97 10^6/ul (4.70-6.10); RED CELL DISTRIBUTION WIDTH 14.7 % (11.5-14.5)
[2019-04-10 09:11] LABS: WHITE BLOOD COUNT 10.4 10^3/ul (4.8-10.8)
[2019-04-10] MEDS: POLYETHYLENE GLYCOL 17 GM PACKET GTB (09:38)
[2019-04-10] MEDS: ASPIRIN 81 MG TAB GTB (09:39)
[2019-04-10] MEDS: LISINOPRIL 20 MG TAB GTB (09:39)
[2019-04-10] MEDS: AMLODIPINE 10 MG TAB GTB (09:39)
[2019-04-10] MEDS: AMIODARONE 200 MG TAB GTB ×2 (09:39→20:10)
[2019-04-10] MEDS: QUETIAPINE 25 MG TAB GTB ×2 (09:40→20:09)
[2019-04-10] MEDS: FAMOTIDINE 20 MG INJ IV (09:40)
[2019-04-10] MEDS: LORAZEPAM 2 MG INJ IV (14:19)
[2019-04-10] MEDS: PENICILLIN G BENZ 2.4 MIL UNIT SYG IM (16:25)
[2019-04-10] MEDS: FAMOTIDINE 20 MG TAB GTB (20:09)
[2019-04-10] MEDS: TAMSULOSIN (SR) 0.4 MG CAP PO (20:10)
[2019-04-10 23:27] LABS: RAPID PLASMA REAGIN REACTIVE (NR)
[2019-04-11] MEDS: Insulin NOVOLOG SS MILD Algorithm (NPO/TPN/ENTERAL FEEDS) SC ×4 (00:12→18:00)
[2019-04-11] MEDS: ALBUTEROL/IPRATROPIUM (NEB) 3 ML AMP HHN ×3 (01:51→14:20)
[2019-04-11] MEDS: SOD CHLORIDE 0.9% 1,000 ML IV ×2 (02:54→12:24)
[2019-04-11 06:46] LABS: ANION GAP 6 (5-13); BLOOD UREA NITROGEN 15 mg/dl (7-20); CALCIUM 7.9 mg/dl (8.4-10.2); CARBON DIOXIDE 27 mmol/L (21-31); CHLORIDE 100 mmol/L (97-110); CREATININE 0.47 mg/dl (0.61-1.24); GLUCOSE 133 mg/dl (70-220); POTASSIUM 4.5 mmol/L (3.5-5.1); SODIUM 133 mmol/L (135-144)
[2019-04-11] MEDS: POLYETHYLENE GLYCOL 17 GM PACKET GTB (08:55)
[2019-04-11] MEDS: ASPIRIN 81 MG TAB GTB (08:55)
[2019-04-11] MEDS: FAMOTIDINE 20 MG TAB GTB (08:56)
[2019-04-11] MEDS: LISINOPRIL 20 MG TAB GTB (08:56)
[2019-04-11] MEDS: QUETIAPINE 25 MG TAB GTB (08:56)
[2019-04-11] MEDS: AMIODARONE 200 MG TAB GTB (08:56)
[2019-04-11] MEDS: AMLODIPINE 10 MG TAB GTB (09:14)
[2019-04-15 11:47] LABS: FLUORESCENT TREPONEMAL AB REACTIVE (NON-REACTIVE)
[2019-04-17] MEDS ORDERED: PENICILLIN G BENZ 2.4 MIL UNIT SYG IM (13:00)
== END 2019-04-11 18:20 | disposition home or self-care (01) | DRG 870 ==
LOC: MS1 04-04 05:48 → 2NE 04-10 21:25 → E/R 17:17 → 2NE 04-06 23:30 → TEL 04-01 20:38 → ICU 17:32
PROC: 5A1955Z Respiratory Ventilation, Greater than 96 Consecutive Hours (ICD-10-PCS; principal; 2019-04-04 15:30)
PROC: 0BH17EZ Insertion of Endotracheal Airway into Trachea, Via Natural or Artificial Opening (ICD-10-PCS; 2019-04-04 15:30)
PROC: 0DH63UZ Insertion of Feeding Device into Stomach, Percutaneous Approach (ICD-10-PCS; 2019-04-04 15:30)
DX: A41.9 Sepsis, unspecified organism (principal); R65.21 Severe sepsis with septic shock; J96.01 Acute respiratory failure with hypoxia; G93.41 Metabolic encephalopathy; J69.0 Pneumonitis due to inhalation of food and vomit; E44.0 Moderate protein-calorie malnutrition; Z68.1 Body mass index [BMI] 19.9 or less, adult; E87.1 Hypo-osmolality and hyponatremia; F03.90 Unspecified dementia, unspecified severity, without behavioral disturbance, psychotic disturbance, mood disturbance, and anxiety; R45.1 Restlessness and agitation; I48.91 Unspecified atrial fibrillation; I10 Essential (primary) hypertension; N35.919 Unspecified urethral stricture, male, unspecified site; R33.9 Retention of urine, unspecified; E11.9 Type 2 diabetes mellitus without complications; D64.9 Anemia, unspecified; R13.10 Dysphagia, unspecified; Z95.1 Presence of aortocoronary bypass graft; Z86.73 Personal history of transient ischemic attack (TIA), and cerebral infarction without residual deficits; B85.0 Pediculosis due to Pediculus humanus capitis; A53.9 Syphilis, unspecified
CPT/HCPCS: 31500; 36415; 36600; 70450; 71045; 74018; 80048; 80053; 80202; 81001; 82803; 82962; 83605; 83735; 84100; 84145; 84484; 85025; 85610; 85730; 86592; 87040-91; 87081; 87086; 92526; 92610; 93005; 94002; 94003; 94640; 94770; 99285-25

== ENCOUNTER 2019-04-13 10:25 | Emergency (ER) | payer OTHER ==
[2019-04-13] MEDS: IOHEXOL 300MG/ML 30 ML BTL (13:19)
== END 2019-04-13 18:41 | disposition home or self-care (01) ==
LOC: E/R 10:25
DX: Z46.59 Encounter for fitting and adjustment of other gastrointestinal appliance and device (principal); E11.9 Type 2 diabetes mellitus without complications; I10 Essential (primary) hypertension; Z79.82 Long term (current) use of aspirin; Z79.84 Long term (current) use of oral hypoglycemic drugs; Z86.73 Personal history of transient ischemic attack (TIA), and cerebral infarction without residual deficits; Z95.1 Presence of aortocoronary bypass graft
CPT/HCPCS: 43761; 74018; 99284-25

== ENCOUNTER 2019-04-20 22:59 | Emergency (ER) | payer OTHER ==
[2019-04-20] MEDS: LORAZEPAM 2 MG INJ IM (23:42)
[2019-04-21] MEDS: DIATR MEGLU/DIATRIZOATE SODIUM 30 ML SOLUTION PO (01:30)
[2019-04-21] MEDS: IOHEXOL 300MG/ML 30 ML BTL (01:41)
== END 2019-04-21 06:05 | disposition home or self-care (01) ==
LOC: E/R 22:59
DX: K94.23 Gastrostomy malfunction (principal); I10 Essential (primary) hypertension; Z95.1 Presence of aortocoronary bypass graft; Z86.73 Personal history of transient ischemic attack (TIA), and cerebral infarction without residual deficits; Z79.4 Long term (current) use of insulin
CPT/HCPCS: 43761; 74018; 82962; 96372; 99284-25

== ENCOUNTER 2019-04-25 17:01 | Emergency (ER) | payer OTHER ==
[2019-04-25 17:47] LABS: ADD MAN DIFF? NO
[2019-04-25 17:49] LABS: BASOPHILS % 0.3 % (0.0-2.0); EOSINOPHILS % 0.2 % (0.0-7.0); HEMATOCRIT 27.6 % (42.0-52.0); HEMOGLOBIN 9.2 g/dl (14.0-18.0); LYMPHOCYTES # 0.7 10^3/ul (0.8-2.9); LYMPHOCYTES % 7.4 % (15.0-51.0); MEAN CORPUSCULAR HEMOGLOBIN 28.8 pg (29.0-33.0); MEAN CORPUSCULAR HGB CONC 33.3 g/dl (32.0-37.0); MEAN CORPUSCULAR VOLUME 86.3 fl (82.0-101.0); MEAN PLATELET VOLUME 9.1 fl (7.4-10.4); MONOCYTE # 0.4 10^3/ul (0.3-0.9); MONOCYTES % 3.8 % (0.0-11.0); NEUTROPHIL # 8.6 10^3/ul (1.6-7.5); NEUTROPHILS % 87.7 % (39.0-77.0); PLATELET COUNT 353 10^3/UL (140-415); RED CELL DISTRIBUTION WIDTH 14.7 % (11.5-14.5)
[2019-04-25 17:49] LABS: WHITE BLOOD COUNT 9.8 10^3/ul (4.8-10.8)
[2019-04-25] MEDS: SOD CHLORIDE 0.9% 1,000 ML IV (18:07)
[2019-04-25 18:11] LABS: ANION GAP 8 (5-13); BLOOD UREA NITROGEN 23 mg/dl (7-20); CALCIUM 8.9 mg/dl (8.4-10.2); CARBON DIOXIDE 27 mmol/L (21-31); CHLORIDE 99 mmol/L (97-110); GLUCOSE 109 mg/dl (70-220); POTASSIUM 4.9 mmol/L (3.5-5.1); SODIUM 134 mmol/L (135-144)
[2019-04-25 18:39] LABS: ADD UMIC YES; UR ASCORBIC ACID NEGATIVE (NEGATIVE); UR BACTERIA FEW /HPF (NONE SEEN); UR BILIRUBIN (Dip) NEGATIVE (NEGATIVE); UR BLOOD (Dip) 3+ mg/dL (NEGATIVE); UR CLARITY CLOUDY (CLEAR); UR COLOR YELLOW (YELLOW); UR GLUCOSE (Dip) NEGATIVE (NEGATIVE); UR KETONES (Dip) NEGATIVE (NEGATIVE); UR LEUKOCYTE ESTERASE (Dip) TRACE Leu/ul (NEGATIVE); UR NITRITE (Dip) NEGATIVE (NEGATIVE); UR RBC 109 /HPF (0-5); UR SPECIFIC GRAVITY (Dip) 1.006 (1.003-1.030); UR TOTAL PROTEIN (Dip) NEGATIVE (NEGATIVE); UR UROBILINOGEN (Dip) NEGATIVE (NEGATIVE); UR WBC 11 /HPF (0-5)
[2019-04-25] MEDS: CEFTRIAXONE 1 GM/50 ML (PMX) 50 ML IVPB (18:49)
== END 2019-04-25 22:03 | disposition home or self-care (01) ==
LOC: E/R 17:01
DX: T83.098A Other mechanical complication of other urinary catheter, initial encounter (principal); I10 Essential (primary) hypertension; E11.9 Type 2 diabetes mellitus without complications; E86.0 Dehydration; N39.0 Urinary tract infection, site not specified; Y73.2 Prosthetic and other implants, materials and accessory gastroenterology and urology devices associated with adverse incidents; Z79.82 Long term (current) use of aspirin; Z79.4 Long term (current) use of insulin; Z86.73 Personal history of transient ischemic attack (TIA), and cerebral infarction without residual deficits; Z95.1 Presence of aortocoronary bypass graft
CPT/HCPCS: 36415; 80048; 81001; 85025; 87086; 96374; 99284-25